=== PATIENT | female | born 1990 | race Two or more races ===

== ENCOUNTER 2019-09-03 02:57 | Inpatient (IN) | payer OTHER ==
[~2019-09-03] VITALS: Ht 162.6 cm; Wt 68.5 kg
[2019-09-03] MEDS ORDERED: PRENATAL CAPLE1 EAC1 PO (03:09)
[2019-09-03] MEDS ORDERED: KEFLEX500 MG PO (03:10)
== END 2019-09-05 13:54 | disposition home or self-care (01) | DRG 807 ==
LOC: LDR 02:57 → OB/GYN 02:57
PROVIDERS: ADMIT Obstetrics & Gynecology
PROC: 10E0XZZ Delivery of Products of Conception, External Approach (ICD-10-PCS; principal; 2019-09-03)
PROC: 10907ZC Drainage of Amniotic Fluid, Therapeutic from Products of Conception, Via Natural or Artificial Opening (ICD-10-PCS; 2019-09-03)
PROC: 4A1HXCZ Monitoring of Products of Conception, Cardiac Rate, External Approach (ICD-10-PCS; 2019-09-03)
DX: O80 Encounter for full-term uncomplicated delivery (principal); Z37.0 Single live birth; Z3A.38 38 weeks gestation of pregnancy